=== PATIENT | male | born 1965 | race Hispanic/Latino ===

== ENCOUNTER → 2017-09-21 | Day surgery (SDC) | payer OTHER ==
[~2017-09-21] MED LIST: FENTANYL CITRATE/PF 100MCG/2 ML INJ ONE; HYOSCYAMINE SULFATE 0.5 MG/ML AMP ONE; LISINOPRIL2.5 MG PO; MIDAZOLAM HCL 2 MG/2 ML VIAL ONE; PROPOFOL IV EMULSION 10 MG/ML 50 ML VIAL ONE
--- OUTSIDE RECORDS SUMMARY | 2017-09-21 07:17 | XMS REPORT | Clinical Summary ---
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 Disp. Refills Start End Date Status Date lisinopril Take 5 mg by mouth daily. Active (PRINIVIL,ZESTRIL) 5 mg tablet Active Problems Problem Noted Date Other chest pain 03/03/2017 Encounters Date Type Specialty Care Team Description 03/03/2017 Hospital Radiology Chloé Lilly, Encounter 03/03/2017 Emergency General Internal Medicine Chloé Lilly, DO Other chest pain (Primary George Bunn MD Dx) after 09/20/2016 Immunizations Name Dates Previously Given Next Due FLUCELVAX QUAD PF (0.5mL 03/03/2017 syringe) Family History Medical History Relation Name Comments Diabetes Brother Diabetes Mother Relation Name Status Comments Brother Mother Social History Tobacco Use Types Packs/Day Years Used Date Never Smoker Alcohol Use Drinks/Week oz/Week Comments Yes Sex Assigned at Date Recorded Not on file Last Filed Vital Signs Vital Sign Reading Time Taken Blood Pressure 139/86 03/03/2017 7:20 PM CDT Pulse 50 03/03/2017 7:20 PM CDT Temperature 36.4 C (97.6 F) 03/03/2017 7:20 PM CDT Respiratory Rate 16 03/03/2017 7:20 PM CDT Oxygen Saturation 98% 03/03/2017 7:20 PM CDT Inhaled Oxygen - - Concentration Weight 90.7 kg (199 lb 14.4 oz) 03/03/2017 2:56 PM CDT Height 160 cm (5' 3") 03/03/2017 2:56 PM CDT Body Mass Index 35.41 03/03/2017 2:56 PM CDT Plan of Treatment Health Maintenance Due Date Last Done Comments COLONOSCOPY 2015 SHINGRIX VACCINE (#1) 2015 INFLUENZA VACCINE 12/27/2017 03/03/2017 Results * ECG 12 lead (03/03/2017 7:54 PM) Only the most recent of 3 results within the time period is included. Component Value Ref Range Ventricular rate 45 Atrial rate 45 AZ interval 176 QRSD interval 80 QT interval 440 QTC interval 380 P axis 1 49 QRS axis 1 -5 T wave axis 0 EKG impression Sinus bradycardia-T wave abnormality, consider lateral ischemia-Abnormal ECG-In automated comparison with ECG of 03-MAR-2017 15:29,-Nonspecific T wave abnormality, worse in Inferior leads- Specimen Performing Laboratory [facility] [address] [place] [address] * Troponin (03/03/2017 7:30 PM) Only the most recent of 2 results within the time period is included. Component Value Ref Range Troponin <0.10 0.00 - 0.10 ng/mL Comment: 0.11 - 1.49 ng/ml May indicate increased risk of acute coronary syndrome. >=1.5 ng/ml Consistent with acute myocardial infarction. The diagnostic value of a single normal or non-diagnostic result is questionable. Serial samples at 2-6 hour intervals are required to rule out acute myocardial injury. Specimen Performing Laboratory Plasma specimen [facility] [address] [place] [address] * Estimated GFR (03/03/2017 3:30 PM) Component Value Ref Range GFR Non Af Amer 89 mL/min/1.73 m2 GFR Af Amer >90 mL/min/1.73 m2 Comment: Chronic kidney disease: <60 mL/min/1.73m2 Kidney failure: <15 mL/min/1.73m2 The estimated GFR is calculated from the IDMS-traceable Modification of Diet in Renal Disease Equation. The accuracy of the calculation is poor when the creatinine is normal. Calculated values >90 mL/min/1.73m2 are not reported. This equation has not been validated in children (<18 years), women, the elderly (>70 years), or ethnic groups other than Caucasians and Americans. Specimen Performing Laboratory Plasma specimen [facility] [address] [place] [address] * Lipid panel (03/03/2017 3:30 PM) Component Value Ref Range Cholesterol 142 50 - 200 mg/dL Triglycerides 202 (H) 50 - 150 mg/dL HDL cholesterol 30 (L) 40 - 60 mg/dL LDL cholesterol 95Comment: Result obtained by direct LDL mg/dL measurement Lipid panel See below interpretation Comment: Total Cholesterol (mg/dL) LDL Cholesterol (mg/dL) <200 Desirable <100 Optimal 200-239 Borderline-high 100-129 Near or above optimal >=240 High 130-159 Borderline-high 160-189 High >=190 Very high HDL Cholesterol (mg/dL) Triglycerides (mg/dL) <40 Low <150 Normal >=60 High 150-199 Borderline-high 200-499 High >=500 Very high Risk Catergories that modify LDL goals. Risk Catergories LDL goal (mg/dL) CHD and CHD risk equivalent <100 (10-year risk >20%) Multiple (2+) risk factors <130 (10-year risk=<20%) 0-1 risk factors <160 (<10-year risk) Defining levels of lipids in metabolic syndrome Triglycerides >=150 mg/dL HDL Cholesterol Men <40 mg/dL Women <50 mg/dL Non-HDL cholesterol is a second target for therapy in persons with high triglycerides (>=200 mg/dL) Specimen Performing Laboratory Plasma specimen [facility] DEPART[facility] OF PATHOLOGY [facility] GENOMIC MEDICINE [address] [place] [address] * Comprehensive metabolic panel (03/03/2017 3:30 PM) Component Value Ref Range Sodium 140 135 - 148 mEq/L Potassium 4.0 3.5 - 5.0 mEq/L Chloride 105 99 - 109 mEq/L CO2 24 24 - 31 mEq/L Anion gap 11 7 - 15 mEq/L Comment: Starting from August , anion gap calculation no longer incorporates potassium. Please note the change. BUN 16 8 - 24 mg/dL Creatinine 0.9 0.5 - 1.5 mg/dL Glucose 217 (H) 65 - 99 mg/dL Calcium 8.2 (L) 8.6 - 10.6 mg/dL Protein 6.2 (L) 6.3 - 8.2 g/dL Albumin 3.4 (L) 3.5 - 5.0 g/dL A/G ratio 1.2 0.7 - 3.8 Alkaline phosphatase 89 30 - 115 U/L AST 25 15 - 46 U/L ALT 18 10 - 55 U/L Total bilirubin 0.5 0.2 - 1.2 mg/dL Specimen Performing Laboratory Plasma specimen [facility] DEPARTMENT OF PATHOLOGY AND GENOMIC MEDICINE [address] [place] [address] * ECG ED Preliminary Interpretation - NOT AN ORDER (03/03/2017 12:09 PM) Narrative Chloé Lilly DO 03/03/2017 12:09 PM ECG ED Preliminary Interpretation - Not an Order Performed by: CHLOÉ LILLY Authorized by: CHLOÉ LILLY ECG reviewed by ED Physician in the absence of a obstetric anaesthetist: yes Rate: ECG rate:64 Rhythm: Rhythm: sinus rhythm Ectopy: Ectopy: none QRS: QRS axis:Normal QRS intervals:Normal ST segments: ST segments:Normal T waves: T waves: normal * XR Chest 1 Vw Portable (03/03/2017 11:46 AM) Specimen Performing Laboratory [facility] [address] [place] [address] Narrative Examination: XR CHEST 1 VW PORTABLE Clinical history: Chest Pain Comparison: None Impression: 1. The heart and pulmonary vasculature are within normal limits. 2. No infiltrate or effusion is demonstrated. 3. There is no acute osseous pathology. CONCLUSION: NO RADIOGRAPHIC EVIDENCE OF ACUTE CARDIOPULMONARY ABNORMALITY. [facility]-[id number] Procedure Note Interface, Radiology Results Incoming - 03/03/2017 11:51 AM CDT Examination: XR CHEST 1 VW PORTABLE Clinical history: Chest Pain Comparison: None Impression: 1. The heart and pulmonary vasculature are within normal limits. 2. No infiltrate or effusion is demonstrated. 3. There is no acute osseous pathology. CONCLUSION: NO RADIOGRAPHIC EVIDENCE OF ACUTE CARDIOPULMONARY ABNORMALITY. [facility]-[id number] * Troponin, I-Stat (03/03/2017 11:40 AM) Component Value Ref Range Troponin, I-Stat 0.00 0.00 - 0.08 ng/mL Comment: 0.09 - 1.49 ng/ml May indicate increased risk of acute coronary syndrome. >=1.5 ng/ml Consistent with acute myocardial infarction. The diagnostic value of a single normal or non-diagnostic result is questionable. Serial samples at 2-6 hour intervals are required to rule out acute myocardial injury. Specimen Performing Laboratory Plasma specimen DEPARTMENT OF PATHOLOGY AND GENOMIC MEDICINE, [facility] [address] [address] [place] [address] * CBC with platelet and differential (03/03/2017 11:40 AM) Component Value Ref Range WBC 7.49 4.50 - 11.00 k/uL RBC 5.01 4.40 - 6.00 m/uL HGB 15.8 14.0 - 18.0 g/dL HCT 44.0 41.0 - 51.0 % MCV 87.8 82.0 - 100.0 fL MCH 31.5 27.0 - 34.0 pg MCHC 35.9 31.0 - 37.0 g/dL RDW - SD 41.2 37.0 - 55.0 fL MPV 10.9 8.8 - 13.2 fL Platelet count 203 150 - 400 k/uL Neutrophils 56.3 39.0 - 69.0 % Lymphocytes 33.8 25.0 - 45.0 % Monocytes 6.8 0.0 - 10.0 % Eosinophils 2.3 0.0 - 5.0 % Basophils 0.8 0.0 - 1.0 % Specimen Performing Laboratory Blood DEPARTMENT OF PATHOLOGY AND GENOMIC MEDICINE, [facility] [address] [address] [facility] [place] [id number] after 09/20/2016 Insurance Payer Benefit Subscriber ID Type Phone Address Plan / Group [employer] CIGNA PPO xxxxxxxxx PPO CIGNA CIGNA OPEN xxxxxxxxx [place] ACC[place] [address]
--- NOTE | 2017-09-21 10:09 | Operative Report ---
DATE OF PROCEDURE: September 21, 2017 REFERRING PHYSICIAN: Dr. Melina Parnell PROCEDURE PERFORMED: Colonoscopy and polypectomy. INDICATIONS FOR COLONOSCOPY: Colorectal cancer screening. MEDICATION: Patient was done under MAC. Please see anesthesiologist's note. PROCEDURE: With the patient in the left lateral decubitus position, the flexible fiberoptic Olympus colonoscope was inserted into the rectum with ease and advanced all the way to the cecum. Two polyps were hot biopsied from the cecum. The scope was then withdrawn slowly, and 1 polyp was hot biopsied from the proximal ascending colon. The rest of the ascending, transverse, descending, and sigmoid, as well as the rectum appeared to be within normal limits. The scope was then retroflexed into the distal rectum and small internal hemorrhoids were noted, none of which was actively bleeding. The scope was then straightened out. The rectosigmoid area, as well as the distal rectal area were decompressed. The scope was subsequently withdrawn. Patient tolerated the procedure well. IMPRESSION 1. Cecal polyps times 2, hot biopsied. 2. Ascending colon polyp, hot biopsied times 1. 3. Internal hemorrhoids, none actively bleeding. PLAN: Follow up histology. Initiate high-fiber and low-fat diet. Initiate high-fiber supplement. Patient will need a followup colonoscopy in 3 years. Job#: [id number] [place] cc:MELINA PARNELL MD
== END | disposition home or self-care (01) ==
LOC: OR 07:15
PROVIDERS: ATTEND Internal Medicine Gastroenterology
PROC: 0DBK8ZZ Excision of Ascending Colon, Via Natural or Artificial Opening Endoscopic (ICD-10-PCS; principal; 2017-09-21 08:45)
PROC: 0DBH8ZZ Excision of Cecum, Via Natural or Artificial Opening Endoscopic (ICD-10-PCS; 2017-09-21 08:45)
DX: Z12.11 Encounter for screening for malignant neoplasm of colon (principal); K63.5 Polyp of colon; K92.1 Melena; R14.2 Eructation; K64.8 Other hemorrhoids; R73.03 Prediabetes; I10 Essential (primary) hypertension; R00.1 Bradycardia, unspecified; G47.33 Obstructive sleep apnea (adult) (pediatric); Z01.810 Encounter for preprocedural cardiovascular examination; Z68.35 Body mass index [BMI] 35.0-35.9, adult
CPT/HCPCS: 36415; 45384; 82948; 93005; J1980; J2250; 45378